=== PATIENT | male | born 1995 | race Caucasian/White ===

== ENCOUNTER 2025-03-26 15:13 | Inpatient (IN) | payer OTHER, SELFPAY ==
--- NOTE | 2025-03-26 16:28 | P.CONHOSP_ITS ---
History of Present Illness Data of Consult Service Date: 03/26/25 Primary Care Provider: Edelmira Manzanares NP [facility] Reason for consult: Medical H&P 29-year-old adult transgender female pronouns (she/her) with a past medical history of ADHD, depression, gender dysphoria presented to the [facility] ED with psychiatric symptoms including flashbacks and hearing voices. Patient's blood work reviewed, no abnormalities noted in complete metabolic panel, phosphorus normal, magnesium normal. Slight increase in WBC which was repeated and within normal limits, no anemia. On exam patient has no medical complaints or concerns. Exam she denies any shortness of breath, dizziness, lightheadedness or any other concerning Review of Systems Review of Systems: Denies any shortness of breath, chest pain, dizziness, lightheadedness, abdominal pain or discomfort, nausea vomiting or diarrhea PMFSH Social History Advance Directives: No Advance Directives Information Provided: Yes Meds Allergies Allergy/AdvReac Type Severity Reaction Status Date / Time No Known Allergies (No Known Allergy Unverified 04/28/20 19:33 Allergies*) Active Medications: Current Medications Acetaminophen (Acetaminophen 325 Mg Tablet) 650 mg PO Q6H PRN PRN Reason: Headache/Pain, Scale 1-10 Al Hydroxide/Mg Hydroxide (Magnesium Hydrox/Alum Hydrox 30 Ml Oral.Susp) 30 ml PO Q6H PRN PRN Reason: Heartburn/Nausea Hydroxyzine HCl (Hydroxyzine Hcl 25 Mg Tablet) 25 mg PO Q6H PRN PRN Reason: mild anxiety Magnesium Hydroxide (Milk Of Magnesia 30 Ml Oral.Susp) 30 ml PO DAILY PRN PRN Reason: Constipation Nicotine Polacrilex (Nicotine Polacrilex 2 Mg Gum) 4 mg BUCCAL Q2H PRN PRN Reason: Nicotine Cravings Olanzapine (Olanzapine 5 Mg Tablet) 5 mg PO Q4H PRN PRN Reason: agitation Trazodone HCl (Trazodone Hcl 50 Mg Tablet) 50 mg PO BEDTIME MRX1 PRN PRN Reason: Insomnia Physical Exam Vital Signs and Narrative: CONST: Alert and oriented, in NAD. Well nourished HEENT: Normocephalic, atraumatic, MMM RESP: Lungs clear, RRR even and regular HEART:,RRR, S1, S2. no edema GI:Abdomen Soft NT, ND. + BS times four :Deferred SKIN: Warm dry and intact, no visible lesions or rashes NEURO:CN II-XII Intact bilaterally, Sensation intact. Speech clear PSYCH: Quiet, flat affect Assessment and Plan (1) Suicidal ideation: Status: Acute Plan Attention deficit hyperactivity disorder/depressive disorders/gender dysphoria in adolescent and adult Treatment per psychiatric team Thank you for allowing me to participate in the care of this patient. Signing off at this time. Please reconsult of any acute concerns or issues arise
[2025-03-26 17:02] VITALS: BMI 30.8
[2025-03-26 17:04] VITALS: BP 127/82; PULSE 87; RESP 16; TEMP 36.4; O2SAT 97
--- NOTE | 2025-03-26 17:35 | PC.NURSE ---
Maura is a 29 year old female assigned male at who was admitted to at 1545 from [facility] on a CV for treatment of adjustment disorder unspecified, anxiety, and PTSD. Precipitant of admission include increased anxiety, mood changes, suicidal ideation, and increased confusion attributed to recent medication changes. She is alert and oriented x 4, and cooperative with admission assessment. Skin check was unremarkable at changeover. Mood is anxious and depressed, pt was intermittently tearful throughout admission assessment. Affect is sad and anxious. She denies AH/VH/TH, and does not appear to be internally preoccupied, or responding to internal stimuli. SHe does not demonstrate any paranoia or suspiciousness, or delusion. Thought process is linear, she denies current suicidal ideation, but is agreeable to seeking staff if she should feel SI. She denies HI. SHe endorses adequate sleep, and states her appetite has been at baseline. She takes marijuana edibles, and is a current cigarette smoker, but denies any other illicit substances including opiates, stimulants, or hallucinogens. There was no tox screen performed at [facility]. She takes hormone replacement therapy, but states she has not been taking it regularly for the past week or two and expressed concerns about getting her meds. She was made aware that not all of her meds are on formulary and to have someone bring in for her. She is adamant that family is unaware of her admission as she does not want to cause any concern . She denies any current physical complaints, and has been placed on 15 minute safety checks.
[2025-03-26 19:35] VITALS: BP 134/79; PULSE 74; RESP 16; TEMP 36.4; O2SAT 97
[2025-03-26 21:11] VITALS: BP 132/84
[2025-03-27 07:40] VITALS: BP 150/89; PULSE 78; RESP 14; TEMP 36.2; O2SAT 99
[2025-03-27 09:39] LABS: Alanine Aminotransferase 17 U/L (0-40); Albumin Level 4.4 g/dL (3.5-5.0); Alkaline Phosphatase 81 U/L (39-117); Anion Gap 15 (12-20); Aspartate Amino Transferase 17 U/L (5-37); Blood Urea Nitrogen 14 mg/dL (9-16); Calcium 9.2 mg/dL (8.4-10.2); Carbon Dioxide 27 mmol/L (22-29); Chloride 101 mmol/L (96-108); Cholesterol 151 mg/dL (<200); Creatinine Clr Calc Pharmacy 182.9; Estimated Glomerular Filt Rate > 60; HDL Cholesterol 45 mg/dL (>40); Potassium 4.0 mmol/L (3.3-5.1); Sodium 139 mmol/L (135-145); Total Protein 7.3 g/dL (6.5-8.0); Triglycerides 113 mg/dL (<150)
[2025-03-27 11:26] LABS: Hemoglobin A1C 115.8417 umol/L; Total Hemoglobin (HGBA1C) 3544.0085 umol/L
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
[2025-03-27 19:15] VITALS: BP 120/73; PULSE 68; RESP 16; TEMP 36.2; O2SAT 96
[2025-03-27 21:25] VITALS: BP 149/96
[2025-03-28 08:00] VITALS: BP 132/87; PULSE 80; RESP 16; TEMP 36.6; O2SAT 98
[2025-03-28 08:25] VITALS: BP 132/87
[2025-03-28] MEDS: cloNIDine 0.1 MG PATCH.TDWK TRANSDERMA (12:09)
[2025-03-28] MEDS: Nicotine 7 MG PATCH.TD24 TRANSDERMA (12:09)
[2025-03-28 12:10] VITALS: BP 129/74
[2025-03-28 13:08] LABS: Cannabinoid Screen Urine POSITIVE (Not Detect)
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
[2025-03-28 19:48] VITALS: BP 132/62; PULSE 69; RESP 16; TEMP 36.8; O2SAT 96
--- NOTE | 2025-03-28 21:20 | PC.NURSE ---
Signed 3 day notice. Up 04/01.
[2025-03-29 07:20] VITALS: BP 150/85; PULSE 72; RESP 14; TEMP 36.4; O2SAT 100
[2025-03-29 09:09] VITALS: BP 123/78
[2025-03-29] MEDS: Nicotine 7 MG PATCH.TD24 TRANSDERMA (09:11)
[2025-03-29] MEDS: ESTRADIOL VALERATE 40 MG/ML 40 EACH IM (10:13)
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
[2025-03-29 21:36] VITALS: BP 136/84; PULSE 68; RESP 14; TEMP 36.3; O2SAT 97
[2025-03-29] MEDS: PROGESTERONE MICRONIZED 200 MG 200 EACH PO (21:37)
--- NOTE | 2025-03-29 22:49 | PC.NURSE ---
had accepted only one nicorette gum on PRN basis refused 2nd piece.
[2025-03-30 07:24] VITALS: BP 136/81; PULSE 89; RESP 16; TEMP 36.3; O2SAT 99
[2025-03-30] MEDS: Nicotine 7 MG PATCH.TD24 TRANSDERMA (08:14)
--- NOTE | 2025-03-30 10:29 | P.PNPSI_ITS ---
Subjective Subjective Date of Service: 03/30/25 Reason For Visit: F43.20 Subjective Notes: 3 Day Interim History: Active on unit. social with peers. attending groups. Patient reports feeling good today; pt stated, I'm still anxious but feel better . pt denies SI/HI/VH/AH. patient reports they are considering attending PHP. 3 day notice up on 03/31/25. Medication Compliance: Yes Side effects from medications: No Attending Groups: Yes Mental Status Exam Mental Status Exam Narrative: Pt is alert and oriented; behavior is cooperative and calm; dressed in casual attire; mood is described as good ; eye contact appropriate; Speech is normal rate, volume and not pressured; thought process is organized; Thought content is on tx/discharge; denies SI/HI/VH/AH. Diagnostics Vital Signs (24Hr): Vital Signs - 24 hr 03/29/25 21:36 03/30/25 07:24 Temperature 97.4 F 97.4 F Pulse Rate 68 89 Respiratory Rate 14 16 Blood Pressure 136/84 136/81 Pulse Oximetry 97 99 Oxygen Delivery Method Room Air Room Air BMI result Body Mass Index 30.8 Labs 03/27/25 08:19 Labs: Laboratory Results - last 48 hr 03/28/25 12:34 Urine Opiates Screen Not Detected Ur Buprenorphine Scrn Not Detected Ur Oxycodone Screen Not Detected Urine Methadone Screen Not Detected Urine Fentanyl Screen Not Detected Ur Barbiturates Screen Not Detected Ur Phencyclidine Scrn Not Detected Ur Amphetamines Screen Not Detected U Benzodiazepines Scrn Not Detected Urine Cocaine Screen Not Detected U Marijuana (THC) Screen POSITIVE H Medications Medications Current Medications Acetaminophen (Acetaminophen 325 Mg Tablet) 650 mg PO Q6H PRN PRN Reason: Headache/Pain, Scale 1-10 Last Admin: 03/28/25 21:43 Dose: 650 mg Al Hydroxide/Mg Hydroxide (Magnesium Hydrox/Alum Hydrox 30 Ml Oral.Susp) 30 ml PO Q6H PRN PRN Reason: Heartburn/Nausea Albuterol Sulfate (Albuterol Sulfate 90 Mcg 8 Gm Inhaler) 2 puff INHALE Q6H PRN PRN Reason: Wheezing Clonidine (Clonidine 0.1 Mg Patch.Tdwk) 0.1 mg TRANSDERMA Inman@0900 [facility]; Protocol Last Admin: 03/28/25 12:09 Dose: 0.1 mg Escitalopram Oxalate (Escitalopram Oxalate 5 Mg Tablet) 15 mg PO BEDTIME MOOSE Last Admin: 03/29/25 21:37 Dose: 15 mg Hydroxyzine HCl (Hydroxyzine Hcl 25 Mg Tablet) 25 mg PO Q6H PRN PRN Reason: mild anxiety Last Admin: 03/29/25 15:41 Dose: 25 mg Lorazepam (Lorazepam 1 Mg Tablet) 1 mg PO Q6H PRN PRN Reason: panic attack Last Admin: 03/29/25 21:37 Dose: 1 mg Magnesium Hydroxide (Milk Of Magnesia 30 Ml Oral.Susp) 30 ml PO DAILY PRN PRN Reason: Constipation Nicotine (Nicotine 7 Mg Patch.Td24) 7 mg TRANSDERMA DAILY [facility] Last Admin: 03/30/25 08:14 Dose: 7 mg Nicotine Polacrilex (Nicotine Polacrilex 2 Mg Gum) 4 mg BUCCAL Q2H PRN PRN Reason: Nicotine Cravings Last Admin: 03/29/25 20:48 Dose: 2 mg Pt Own (Estradiol Valerate 40 Mg/Ml Oil) 40 mg IM Q14D MOOSE Last Admin: 03/29/25 10:15 Dose: Not Given Pt Own (Progesterone (Micronized 200 Mg)) 200 mg PO BEDTIME MOOSE Last Admin: 03/29/25 21:37 Dose: 200 mg Olanzapine (Olanzapine 5 Mg Tablet) 5 mg PO Q4H PRN PRN Reason: agitation Last Admin: 03/29/25 16:08 Dose: 5 mg Olanzapine (Olanzapine 2.5 Mg Tablet) 2.5 mg PO BEDTIME MOOSE Last Admin: 03/29/25 21:38 Dose: 2.5 mg Spironolactone (Spironolactone 25 Mg Tablet) 100 mg PO BID MOOSE; Protocol Last Admin: 03/30/25 08:13 Dose: 100 mg Trazodone HCl (Trazodone Hcl 50 Mg Tablet) 50 mg PO BEDTIME MRX1 PRN PRN Reason: Insomnia Last Admin: 03/29/25 21:38 Dose: 50 mg Allergies Allergies Allergy/AdvReac Type Severity Reaction Status Date / Time No Known Allergies (No Known Allergy Unverified 04/28/20 19:33 Allergies*) Assessment & Plan Assessment & Plan (1) Gender dysphoria: Status: Acute Code(s): F64.9 - Gender identity disorder, unspecified (2) Sexual relationship problem due to sexual orientation confusion: Status: Acute Code(s): F66 - Other sexual disorders Plan 03/27: change zyprexa 5 BID to 2.5 QHS. continue lexapro 15. ativan 1 mg PRN severe anxiety. 03/28: slept well. trazodone PRN. some zyprexa PRN helpful for rapid thoughts. start clonidine and nicotine patches for focus. 03/29: Active on unit. social with peers. attending groups. Patient reports feeling okay today; pt stated, I'm just trying to ground myself. I feel like the meds are working . Pt reports interest in IOP; psychologist social aware. pt denies SI/HI/VH/AH. 3 day notice up on 03/31/25. Continue current tx plan 03/30: Active on unit. social with peers. attending groups. Patient reports feeling good today; pt stated, I'm still anxious but feel better . pt denies SI/HI/VH/AH. patient reports they are considering attending PHP. 3 day notice up on 03/31/25. Patient educated on: diagnosis and medication risk/benefits Reason for continued inpatient stay Substantial Risk for: stable for discharge Time Spent With Patient Time: Total time managing care of this patient today _20___ minutes.
[2025-03-30 20:00] VITALS: BP 137/81; PULSE 96; RESP 16; TEMP 37; O2SAT 96
[2025-03-30] MEDS: PROGESTERONE MICRONIZED 200 MG 200 EACH PO (20:29)
[2025-03-30] MEDS: Albuterol Sulfate 90 MCG 8 GM INHALER 2 PUFF INHALE (20:29)
[2025-03-31 08:00] VITALS: BP 124/76; PULSE 82; RESP 16; TEMP 36.4; O2SAT 99
[2025-03-31] MEDS: Nicotine 7 MG PATCH.TD24 TRANSDERMA (08:47)
--- NOTE | 2025-03-31 13:15 | P.DS_ITS ---
DS: Providers Provider Date of Service: 03/31/25 Date of admission: 03/26/25 15:13 Date of discharge: 03/31/25 Primary care physician: Edelmira Manzanares NP Attending physician on admission: Bobo Dick Consults: 03/26/25 15:28 Consult to Hospitalist Routine Comment: Consulting Provider: [facility] Hospitalists Reason For Exam: New admit, H&P Attending physician on discharge: Fam Venegas Discharging clinician: Asuncion Bernal DS: Diagnosis Discharge Diagnosis (1) Gender dysphoria: Status: Acute (2) Sexual relationship problem due to sexual orientation confusion: Status: Acute DS: Medications Discharge Medications Home Medications: Home Medications ?Medication ?Instructions ?Recorded ?Confirmed albuterol sulfate 90 mcg/actuation 2 puff inhalation Q 6H PRN wheezing 03/26/25 03/26/25 aerosol inhaler (Ventolin HFA) citalopram 10 mg tablet 30 mg PO QAM 03/26/25 estradiol valerate 40 mg/mL 40 mg IM Q2W 03/26/2503/12 intramuscular oil lorazepam 1 mg tablet 1 mg PO Q8H PRN panic attack 03/26/25 03/26/25 progesterone micronized 200 mg 200 mg PO DAILY 03/26/25 capsule spironolactone 100 mg tablet 100 mg PO BID 03/26/25 Previous Rx's ?Medication ?Instructions ?Recorded clonidine 0.1 mg/24 hr weekly 0.1 mg transdermal Inman@09 00 14 days 03/30/25 transdermal patch #2 ea hydroxyzine HCl 25 mg tablet 25 mg PO BID PRN mild anx iety 30 03/30/25 days #60 tabs olanzapine 2.5 mg tablet 2.5 mg PO BEDTIME 30 days #3 0 tabs 03/30/25 olanzapine 5 mg tablet 5 mg PO BID PRN agitation 14 days 03/30/25 #28 tabs trazodone 50 mg tablet 50 mg PO BEDTIME PRN Insomni a 30 03/30/25 days #30 tabs Mental Status Exam Mental Status Exam Narrative: Pt is alert and oriented; behavior is cooperative and calm; dressed in casual attire; mood is described as good ; eye contact appropriate; Speech is normal rate, volume and not pressured; thought process is organized; Thought content is on tx/discharge; denies SI/HI/VH/AH. Data Data Completed and Pending Completed studies during hospitalization [Text1]: 03/27/25 03/28/25 08:19 12:34 Sodium 139 Potassium 4.0 Chloride 101 Carbon Dioxide 27 Anion Gap 15 BUN 14 Creatinine 0.67 Estim Creat Clear Calc 182.9 Estimated GFR > 60 Random Glucose 110 Estimat Average Glucose 100 Hemoglobin A1c % 5.1 Calcium 9.2 Total Bilirubin 0.2 AST 17 ALT 17 Alkaline Phosphatase 81 Total Protein 7.3 Albumin 4.4 Triglycerides 113 Cholesterol 151 LDL Cholesterol, Calc 84 HDL Cholesterol 45 Urine Opiates Screen Not Detected Ur Buprenorphine Scrn Not Detected Ur Oxycodone Screen Not Detected Urine Methadone Screen Not Detected Urine Fentanyl Screen Not Detected Ur Barbiturates Screen Not Detected Ur Phencyclidine Scrn Not Detected Ur Amphetamines Screen Not Detected U Benzodiazepines Scrn Not Detected Urine Cocaine Screen Not Detected U Marijuana (THC) Screen POSITIVE H DS: Summary Hospital Course Hospital Course: per [facility] crisis sarahal pt is a male to female transgendered individual who self- presented to [facility] (with support of friends and partner) with c/o SI and feeling overwhelmed. pt was referred for eval by outpt therapist. pt reports being super confused on her sexual orientation. pt feels her ideas about her gender identity and sexual orientation are changing or have recently changed. pt's former partner alexi reported for the past 6 weeks pt has been having severe mental health difficulties which have led to her stopping work and having confusion differentiating reality from delusion. alexi reported pt's moods have been labile in this period. pt is feeling very stressed in that she is responsible for paying the rent on the apartment she shares with several friends, and now that she is not working the future of her living arrangement is in doubt. she reported to crisis staff that she has been not taking her medications as prescribed and has been abusing stimulants (which she later identified to this clinical writer as caffeine). alexi and pt both believe that recently prescribed antipsychotic medication has been counter-productive for her. intermittent AVH reported. intense SI without plan. reporting very poor sleep recently. shaking and crying during crisis interview. on interview with on M[facility], pt is calm and cooperative. no abnormal movements, no crying. she reports she has been feeling overwhelmed and her mood has been up and down. she denies SI, denies AVH for the past several days. feels that the zyprexa she was prescribed - 5 mg BID - left her with dulled senses and finding it harder to focus. she has been taking it since being hospitalized, but agrees to decrease dosing to 2.5 mg at HS to see if that is a more tolerable dose. she seems to approach the hospitalization somewhat as a respite for stressors and as a well-boundaried space to calm her mind and regain her footing. in addition to the zyprexa, she will take lexapro in place of citalopram and also have access to ativan PRN. change zyprexa 5 BID to 2.5 QHS. continue lexapro 15. ativan 1 mg PRN severe anxiety. slept well. trazodone PRN. some zyprexa PRN helpful for rapid thoughts. start clonidine and nicotine patches for focus. Active on unit. social with peers. attending groups. Patient reports feeling okay today; pt stated, I'm just trying to ground myself. I feel like the meds are working . Pt reports interest in IOP; social services technician aware. pt denies SI/HI/VH/AH. 3 day notice up on 03/31/25. Continue current tx plan Active on unit. social with peers. attending groups. Patient reports feeling good today; pt stated, I'm still anxious but feel better . pt denies SI/HI/VH/AH. patient reports they are considering attending PHP. 3 day notice up on 03/31/25. Patient continues to report feeling good and looking forward to discharge. denies SI/HI/VH/AH. Patient reports they plan on following up with outpatient providers. Status at Discharge Cognitive/behavioral status at discharge: Patient has insight and demonstrates good judgment in terms of wanting to pursue treatment. Patient has a safety plan that includes presenting to the closest ER or calling 911 if feeling unsafe. Functional status at discharge: independent ambulation Overall status at discharge: patient is back to baseline Time Spent with Patient Time attestation: Total time managing care of this patient today __20__ minutes. Time spent: Less than 30 minutes Discharge Plan Discharge Anticipated Discharge Date/Time: 03/31/25 10:00 Patient Disposition: Home, Self-Care Discharge Diagnosis: Adjustment d/o Referrals: PCP: Bernie Manzanares ([facility]) [Other] - 04/01/25 4:30 pm Referral Note: Appointment is in person at the office Therapist: Carine ([facility]) [Other] - 04/01/25 3:00 pm IOP: [facility] [Other] - 1 Week Referral Note: Your IOP referral has been submitted and they will be calling you to schedule an intake. It is suggested if you have not heard from anyone by 04/02/25, you contact Lily at the above number and Ext. [phone] [facility] Community [facility] Services: [employer] [Other] - 1 Week Referral Note: Referral was submitted to [employer] for career services assistance and home care/community living assistance. You should receive a call to assign you a corrections caseworker but you may also follow up at the above number Discharge Medications: New olanzapine 2.5 mg Tablet 2.5 mg PO BEDTIME 30 Days Qty: 30 0RF trazodone 50 mg Tablet 50 mg PO BEDTIME PRN (Reason: Insomnia) 30 Days Qty: 30 0RF olanzapine 5 mg Tablet 5 mg PO BID PRN (Reason: agitation) 14 Days Qty: 28 0RF hydroxyzine HCl 25 mg Tablet 25 mg PO BID PRN (Reason: mild anxiety) 30 Days Qty: 60 0RF clonidine 0.1 mg/24 hr Patch Weekly 0.1 mg transdermal Inman@0900 14 Days Qty: 2 0RF Protocol: Hold for SBP< HOLD for SBP < : 90 Continued citalopram 10 mg tablet 30 mg PO QAM spironolactone 100 mg tablet 100 mg PO BID progesterone micronized 200 mg capsule 200 mg PO DAILY lorazepam 1 mg tablet 1 mg PO Q8H PRN (Reason: panic attack) estradiol valerate 40 mg/mL oil 40 mg IM Q2W albuterol sulfate [Ventolin HFA] 90 mcg/actuation HFA aerosol inhaler 2 puff inhalation Q6H PRN (Reason: wheezing) Discontinued olanzapine 5 mg tablet 5 mg PO DAILY PRN (Reason: anxiety) olanzapine 10 mg tablet 5 mg PO BID Discharge Orders: Discharge Order (Routine); Ordered 03/31/25 Ordered By: Asuncion Bernal Diet: Regular diet Activity on Discharge: As tolerated Stand Alone Forms: Patient Portal Discharge page, Community Support Print Language: Martiniquais Care Plan Goals: Maintain mood and safe behaviors Take medications as prescribed Practice coping skills Continue with outpatient providers and reach out to them as needed Health Concerns: Mood stability and behaviors Plan of Treatment: Follow up with your PCP, psychiatric provider and other outpatient providers regarding above concerns Take medications as prescribed Assessment: Patient has insight and demonstrates good judgment in terms of wanting to pursue treatment. Patient has a safety plan that includes presenting to the closest ER or calling 911 if feeling unsafe. Discharge Date/Time: 03/31/25 10:02
== END 2025-03-31 10:02 | disposition home or self-care (01) | DRG 882 ==
PROVIDERS: Admitting Provider Psychiatry & Neurology Psychiatry; PCP Nurse Practitioner Family; Responsible Provider Registered Nurse; Visit Provider Psychiatry & Neurology Psychiatry
DX: F43.20 Adjustment disorder, unspecified (principal); R45.851 Suicidal ideations; Z59.819 Housing instability, housed unspecified; F66 Other sexual disorders; F64.0 Transsexualism; Z56.0 Unemployment, unspecified; Z87.891 Personal history of nicotine dependence; Z79.899 Other long term (current) drug therapy
CPT/HCPCS: 36415; 80053; 80061; 80307; 83036

== ENCOUNTER → 2025-03-26 15:13 | Outpatient (BNV) | payer OTHER, SELFPAY | PROVIDERS: Admitting Provider Psychiatry & Neurology Psychiatry; PCP Nurse Practitioner Family; Visit Provider Nurse Practitioner Family | DX: R45.851 Suicidal ideations (principal) | CPT/HCPCS: 99221 ==

== ENCOUNTER → 2025-03-26 15:13 | Outpatient (BNV) | payer OTHER, SELFPAY | PROVIDERS: Admitting Provider Psychiatry & Neurology Psychiatry; PCP Nurse Practitioner Family; Visit Provider Psychiatry & Neurology Psychiatry | DX: F64.9 Gender identity disorder, unspecified (principal); F66 Other sexual disorders | CPT/HCPCS: 90791; 99231; 99232; 99238 ==